=== PATIENT | female | born 2000 | race Two or more races ===

== ENCOUNTER 2022-10-27 11:07 | Emergency (ER) | payer MEDICAID, OTHER ==
[~2022-10-27] VITALS: Ht 157.5 cm; Wt 80.0 kg
[2022-10-27 12:34] VITALS: BP 123/92
[2022-10-27] MEDS ORDERED: AZIT500T66 PO (13:26)
[2022-10-27] MEDS ORDERED: PROM1SOL4 PO (13:26)
== END 2022-10-27 13:32 | disposition home or self-care (01) ==
LOC: ER 11:07
DX: J03.90 Acute tonsillitis, unspecified (principal); Z20.822 Contact with and (suspected) exposure to COVID-19
CPT/HCPCS: 36415; 87426

== ENCOUNTER 2022-11-03 22:03 | Emergency (ER) | payer MEDICAID ==
[~2022-11-03] VITALS: Ht 157.5 cm; Wt 69.1 kg
[~2022-11-03 22:03] MED LIST: AZIT500T66 PO; PROM1SOL4 PO
[2022-11-03 22:40] VITALS: BP 111/77
== END 2022-11-04 00:50 | disposition home or self-care (01) ==
LOC: ER 22:03
DX: J06.9 Acute upper respiratory infection, unspecified (principal); Z20.822 Contact with and (suspected) exposure to COVID-19
CPT/HCPCS: 36415; 71045; 87426; 87804